=== PATIENT | female | born 1965 | race African-American/Black ===

== ENCOUNTER 2021-04-26 00:35 | Emergency (ER) | payer OTHER, MEDICAID ==
[~2021-04-26] VITALS: Ht 170.2 cm; Wt 117.9 kg
[2021-04-26 00:52] VITALS: BP 124/82
--- NOTE | 2021-04-26 00:55 | NUR ---
triaged and waiting in ER lobby.
--- NOTE | 2021-04-26 02:00 | NUR ---
patient wheelchair in bed 8
--- NOTE | 2021-04-26 02:02 | NUR ---
AVERY from home for low back pain x3 days. patient took naproxen x3 hrs ago. 07/11 pain that sharp pain that goes down the legs and across the back. Patient ambulatory but with pain. PMH: sciatica allergies: demerol
[2021-04-26] MEDS ORDERED: KETOROLAC 60 MG/2 ML VIAL IM ONE (02:40)
[2021-04-26] MEDS ORDERED: ONDANSETRON 4 MG ODT PO ONE (02:40)
[2021-04-26] MEDS ORDERED: ONDA-24 SL (02:41)
[2021-04-26 03:10] VITALS: BP 136/79
--- NOTE | 2021-04-26 03:10 | NUR ---
Patient discharged with v/s stable. Written and verbal after care instructions given and explained. Patient alert, oriented and verbalized understanding of instructions. Wheel Chair Assisted to lobby. All questions addressed prior to discharge. ID band removed. Patient advised to follow up with PMD. Rx of zofran ODT given. Patient educated on indication of medication including possible reaction and side effects. Opportunity to ask questions provided and answered.
== END 2021-04-26 03:10 | disposition home or self-care (01) ==
LOC: MED 00:35
DX: G89.29 Other chronic pain (principal); M54.5 Low back pain; K21.9 Gastro-esophageal reflux disease without esophagitis; E66.9 Obesity, unspecified; Z79.899 Other long term (current) drug therapy; Z68.41 Body mass index [BMI] 40.0-44.9, adult; Z88.8 Allergy status to other drugs, medicaments and biological substances
CPT/HCPCS: 96372; 99283; J1885; Q0162

== ENCOUNTER 2021-10-28 19:11 | Emergency (ER) | payer OTHER, MEDICAID ==
[~2021-10-28] VITALS: Ht 170.2 cm; Wt 120.7 kg
[~2021-10-28 19:11] MED LIST: ONDA-188 SL
[2021-10-28 19:38] VITALS: BP 144/78
--- NOTE | 2021-10-28 20:45 | NUR ---
SEEN AND EXAMINED BY TONIE
[2021-10-28] MEDS ORDERED: KETOROLAC 30 MG/ML VIAL IM ONE (20:50)
[2021-10-28] MEDS ORDERED: NAPR-54 PO (21:10)
[2021-10-28] MEDS ORDERED: LID5T TP (21:10)
[2021-10-28 21:27] VITALS: BP 144/78
--- NOTE | 2021-10-28 21:27 | NUR ---
Patient discharged with v/s stable. Written and verbal after care instructions given and explained. Patient alert, oriented and verbalized understanding of instructions. Ambulatory with steady gait. All questions addressed prior to discharge. ID band removed. Patient advised to follow up with PMD. Rx of LIDODERM, NAPROSYN given. Patient educated on indication of medication including possible reaction and side effects. Opportunity to ask questions provided and answered.
== END 2021-10-28 21:27 | disposition home or self-care (01) ==
LOC: MED 19:11
DX: G89.29 Other chronic pain (principal); M54.50 Low back pain, unspecified; K21.9 Gastro-esophageal reflux disease without esophagitis; Z79.899 Other long term (current) drug therapy; Z88.8 Allergy status to other drugs, medicaments and biological substances
CPT/HCPCS: 96372; 99283; J1885

== ENCOUNTER 2024-04-24 13:37 | Emergency (ER) | payer OTHER, MEDICAID ==
[~2024-04-24] VITALS: Ht 170.2 cm; Wt 119.5 kg
[~2024-04-24 13:37] MED LIST changes: +LID5T TP; +NAPR-337 PO
[2024-04-24 13:41] VITALS: BP 150/95; PULSE 103; RESP 19; TEMP 98.8; O2SAT 98
[2024-04-24 14:11] VITALS: PULSE 98; O2SAT 97
[2024-04-24] MEDS: NACL 0.9% 1,000 ML IV ONE (14:13)
[2024-04-24 14:17] LABS: BASOPHILS % (AUTO) 0.6 % (0.0-2.0); EOSINOPHILS # (AUTO) 0.1 K/uL (0-0.4); EOSINOPHILS % (AUTO) 1.8 % (0.0-4.0); HEMATOCRIT 40.6 % (36-48); HEMOGLOBIN 13.3 g/dL (12.0-16.0); LYMPHOCYTES # (AUTO) 0.5 K/uL (2.5-16.5); LYMPHOCYTES % (AUTO) 8.3 % (20.5-51.1); MEAN CORPUSCULAR HEMOGLOBIN 25 pg (27-31); MEAN CORPUSCULAR HGB CONC 33 g/dL (33-37); MEAN CORPUSCULAR VOLUME 76.4 fL (80-94); MONOCYTES # (AUTO) 0.4 K/uL (0.8-1.0); MONOCYTES % (AUTO) 6.1 % (1.7-9.3); NEUTROPHILS # (AUTO) 5.2 K/uL (1.8-7.7); NEUTROPHILS % (AUTO) 83.2 % (42.2-75.2); PLATELET COUNT (AUTO) 261 K/uL (140-450); RED BLOOD CELL COUNT(AUTO) 5.31 MIL/uL (4.20-5.40); RED CELL DISTRIBUTION WIDTH 15.4 % (11.6-13.7); WHITE BLOOD COUNT (AUTO) 6.3 K/uL (4.8-10.8)
[2024-04-24 14:26] LABS: ANION GAP 9.2 (8-16); CALCIUM 9.2 mg/dL (8.5-10.1); CARBON DIOXIDE 29.8 mmol/L (21-32); CREATININE 1.1 mg/dL (0.6-1.3)
[2024-04-24 14:37] LABS: INR 0.95 (0.8-1.2); PARTIAL THROMBOPLASTIN TIME 26.6 secs (22-35.6)
[2024-04-24] MEDS: ACETAMINOPHEN 325 MG TAB PO ONE (15:51)
[2024-04-24] MEDS: KETOROLAC 30 MG/ML VIAL IVP ONE (15:52)
[2024-04-24] MEDS: MORPHINE SULFATE 4 MG/ML SYR IVP ONE (17:54)
[2024-04-24] MEDS: ONDANSETRON 4 MG/2 ML VIAL IVP ONE (17:54)
[2024-04-24] MEDS: ALUMINUM HYD/MAG/SIMETHICONE 30 ML UDC PO ONE (17:59)
[2024-04-24] MEDS ORDERED: MAG354OR3 PO (18:11)
[2024-04-24] MEDS ORDERED: IBUP-2213 PO (18:11)
== END 2024-04-24 20:08 | disposition home or self-care (01) ==
LOC: MED 13:37
DX: R07.89 Other chest pain (principal); K21.9 Gastro-esophageal reflux disease without esophagitis; Z79.1 Long term (current) use of non-steroidal anti-inflammatories (NSAID); Z79.899 Other long term (current) drug therapy; Z90.710 Acquired absence of both cervix and uterus; Z88.5 Allergy status to narcotic agent
CPT/HCPCS: 36415; 71045; 80048; 83880; 84484; 85025; 85379; 85610; 85730; 93005; 96361; 96374; 96375; 99285; J1885; J2270; J2405; J7030

== ENCOUNTER 2024-07-13 19:09 | Emergency (ER) | payer OTHER ==
[~2024-07-13] VITALS: Ht 170.2 cm; Wt 117.9 kg
[~2024-07-13 19:09] MED LIST changes: +IBUP-2213 PO; +MAG354OR3 PO
[2024-07-13 19:14] VITALS: BP 128/81; PULSE 85; RESP 18; TEMP 97.7; O2SAT 98
[2024-07-13] MEDS: KETOROLAC 60 MG/2 ML VIAL IM ONE (20:24)
[2024-07-13] MEDS: methocarbamoL 500 MG TAB PO SCH (20:25)
[2024-07-13] MEDS ORDERED: NAPR-1704 PO ×2 (21:02→22:07)
[2024-07-13] MEDS ORDERED: CAPS1ADH5 TP ×2 (21:02→22:07)
[2024-07-13] MEDS ORDERED: METH-1681 PO ×2 (21:02→22:07)
[2024-07-13 21:18] VITALS: BP 128/81; PULSE 85; RESP 18; TEMP 97.7; O2SAT 98
== END 2024-07-13 19:21 | disposition home or self-care (01) ==
LOC: MED 19:09
DX: M54.50 Low back pain, unspecified (principal); R51.9 Headache, unspecified; K21.9 Gastro-esophageal reflux disease without esophagitis; Z79.899 Other long term (current) drug therapy; Z88.8 Allergy status to other drugs, medicaments and biological substances
CPT/HCPCS: 96372; 99283; J1885